=== PATIENT | male | born 1995 | race Two or more races ===

== ENCOUNTER 2018-03-25 05:51 | Emergency (ER) | payer OTHER ==
[~2018-03-25] VITALS: Ht 180.3 cm; Wt 106.6 kg
== END 2018-03-25 12:55 | disposition home or self-care (01) ==
LOC: ER 05:51
DX: S02.2XXA Fracture of nasal bones, initial encounter for closed fracture (principal); S00.83XA Contusion of other part of head, initial encounter; W18.39XA Other fall on same level, initial encounter; Y93.89 Activity, other specified; Y92.098 Other place in other non-institutional residence as the place of occurrence of the external cause; Y99.8 Other external cause status; R55 Syncope and collapse